=== PATIENT | female | born 1965 | race Caucasian/White ===

== ENCOUNTER 2024-08-08 06:30 | Day surgery (SDC) | payer OTHER, SELFPAY ==
[2024-08-08 10:14] VITALS: BMI 22.1
[2024-08-08 10:16] VITALS: BMI 22.1
[2024-08-08 10:17] VITALS: BP 108/73
[2024-08-08 12:51] VITALS: BP 169/148
[2024-08-08 12:53] VITALS: BP 110/77
[2024-08-08 13:00] VITALS: BP 114/81
[2024-08-08 13:15] VITALS: BP 130/85
== END 2024-08-08 13:25 | disposition home or self-care (01) ==
LOC: SDS 06:30
PROVIDERS: ATTENDING PHYSICIAN Internal Medicine Gastroenterology
DX: K31.89 Other diseases of stomach and duodenum (principal)
CPT/HCPCS: 43259

== ENCOUNTER 2024-11-14 06:22 | Day surgery (SDC) | payer OTHER, SELFPAY ==
[2024-11-05 11:11] LABS: % Basophils 0.9 % (0-2); % Eosinophils 1.9 % (0-6); % Immature Granulocytes 0.2 % (0-0.5); % Lymphocytes 34.2 % (20.5-51.1); % Monocytes 6.4 % (1.7-9.3); % Neutrophils 56.4 % (42.2-75.2); Absolute Eosinophils 0.1 10^3/uL (0-0.7); Absolute Lymphocytes 1.5 10^3/uL (1.2-3.4); Absolute Monocytes 0.3 10^3/uL (0.1-0.6); Absolute Neutrophils 2.4 10^3/uL (1.4-6.5); Hematocrit 38.5 % (37.0-47.0); Hemoglobin 13.3 g/dL (12.0-16.0); Mean Corp Hgb Conc. 34.5 g/dL (33.0-37.0); Mean Corpuscular Hgb 31.4 pg (27.0-31.0); Mean Corpuscular Volume 90.8 fL (81.0-99.0); Mean Platelet Volume 9.6 fL (7.4-10.4); Nucleated Red Blood Cells % 0 %; Platelet Count 188 10^3/uL (130-400); Red Blood Cell Count 4.24 10^6/uL (4.20-5.40); Red Cell Dist. Width 12.2 % (11.5-14.5); White Blood Cell Count 4.2 10^3/uL (4.8-10.8)
[2024-11-05 11:36] LABS: Blood Urea Nitrogen 17 mg/dl (7-17); Calcium 9.7 mg/dl (8.4-10.2); Carbon Dioxide 33 mmol/L (22-30); Chloride 99 mmol/L (98-107); Glucose 92 mg/dl (70-99); Potassium 3.8 mmol/L (3.5-5.1); Sodium 134 mmol/L (135-145); eGFR > 60.00
[2024-11-05 13:41] VITALS: BMI 22.2
[2024-11-14] VITALS (9 sets, daily range): BP systolic 117–129; BP diastolic 65–79; BMI 22.2
[2024-11-14] MEDS: TYLENOL 1000 MG PO (08:58)
[2024-11-14] MEDS: CELEBREX 200 MG PO (08:58)
[2024-11-14] MEDS: NORMOSOL-R/PLASMALYTE-A 1000 IV (08:59)
== END 2024-11-14 13:45 | disposition home or self-care (01) ==
LOC: SDS 06:22
PROVIDERS: ATTENDING PHYSICIAN Specialist; FAMILY PHYSICIAN Nurse Practitioner
DX: S46.812A Strain of other muscles, fascia and tendons at shoulder and upper arm level, left arm, initial encounter (principal); S46.212A Strain of muscle, fascia and tendon of other parts of biceps, left arm, initial encounter; X58.XXXA Exposure to other specified factors, initial encounter; M19.012 Primary osteoarthritis, left shoulder
CPT/HCPCS: 29827; 29828; 36415; 80048; 85025; 93005